=== PATIENT | male | born 1970 | race Two or more races ===

== ENCOUNTER → 2017-08-20 | Outpatient (CLI) | payer OTHER, MEDICAID ==
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
== END ==
LOC: M PAIN 13:00
PROVIDERS: ATTEND Anesthesiology
DX: G89.29 Other chronic pain (principal); M54.5 Low back pain; I10 Essential (primary) hypertension; G47.33 Obstructive sleep apnea (adult) (pediatric); Z88.5 Allergy status to narcotic agent; Z87.891 Personal history of nicotine dependence; Z79.899 Other long term (current) drug therapy

== ENCOUNTER → 2017-09-24 | Outpatient (CLI) | payer OTHER, MEDICAID | LOC: M PAIN 11:45 | DX: M54.16 Radiculopathy, lumbar region (principal); M46.1 Sacroiliitis, not elsewhere classified; I10 Essential (primary) hypertension; Z79.899 Other long term (current) drug therapy; Z88.5 Allergy status to narcotic agent; Z87.891 Personal history of nicotine dependence | CPT/HCPCS: G0463 ==

== ENCOUNTER → 2018-02-24 | Outpatient (CLI) | payer OTHER, MEDICAID | LOC: M PAIN 10:00 | DX: M54.16 Radiculopathy, lumbar region (principal); M46.1 Sacroiliitis, not elsewhere classified; I10 Essential (primary) hypertension; Z79.899 Other long term (current) drug therapy; Z88.5 Allergy status to narcotic agent; Z87.891 Personal history of nicotine dependence | CPT/HCPCS: G0463 ==

== ENCOUNTER → 2018-03-25 | Outpatient (CLI) | payer OTHER, MEDICAID | LOC: M PAIN 09:45 | DX: M54.16 Radiculopathy, lumbar region (principal); M46.1 Sacroiliitis, not elsewhere classified; I10 Essential (primary) hypertension; Z79.899 Other long term (current) drug therapy; Z88.5 Allergy status to narcotic agent; Z87.891 Personal history of nicotine dependence | CPT/HCPCS: G0463 ==

== ENCOUNTER → 2018-06-08 | Outpatient (CLI) | payer MEDICARE, OTHER, MEDICAID ==
[~2018-06-08] MED LIST: BUPIVACAINE HCL 0.25% 10 ML VIAL As Ordered; BUPIVACAINE HCL 0.25% 30 ML VIAL As Ordered; TRIAMCINOLONE ACETONIDE SUSP 40 MG/ML VIAL (J3301) As Ordered
== END ==
LOC: M PAIN 14:30
DX: M79.18 Myalgia, other site (principal); M79.10 Myalgia, unspecified site (principal); I10 Essential (primary) hypertension; M54.9 Dorsalgia, unspecified; Z87.891 Personal history of nicotine dependence; Z79.899 Other long term (current) drug therapy; Z88.5 Allergy status to narcotic agent
CPT/HCPCS: J3301

== ENCOUNTER → 2018-06-29 | Outpatient (CLI) | payer OTHER, MEDICAID | LOC: M PAIN 14:15 | DX: M79.18 Myalgia, other site (principal); M54.5 Low back pain; I10 Essential (primary) hypertension; Z79.899 Other long term (current) drug therapy; Z88.5 Allergy status to narcotic agent; Z87.891 Personal history of nicotine dependence | CPT/HCPCS: G0463 ==

== ENCOUNTER → 2018-12-23 | Outpatient (CLI) | payer OTHER, MEDICAID ==
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
== END ==
LOC: M PAIN 09:15
PROVIDERS: ATTEND Nurse Practitioner Family
DX: M54.16 Radiculopathy, lumbar region (principal); M46.96 Unspecified inflammatory spondylopathy, lumbar region; G89.29 Other chronic pain; I10 Essential (primary) hypertension; Z87.891 Personal history of nicotine dependence; Z88.5 Allergy status to narcotic agent; Z79.899 Other long term (current) drug therapy

== ENCOUNTER → 2019-05-22 | Outpatient (REF) | payer MEDICARE, MEDICAID, OTHER ==
[2019-05-22 14:02] LABS: BASO # 0.1 10^3/uL (0.0-0.2); EOS # 0.2 10^3/uL (0.0-0.5); EOS % 2.6 % (0.0-3.0); HEMATOCRIT 48.1 % (42.0-52.0); HEMOGLOBIN 15.7 g/dl (13.5-17.5); LYMPH # 1.3 10^3/uL (1.5-5.0); LYMPH % 20.8 % (24.0-44.0); MEAN CORPUSCULAR HGB CONC 32.6 g/dl (32.0-36.5); MEAN CORPUSCULAR VOLUME 88.9 fl (80.0-96.0); MONO # 0.6 10^3/uL (0.0-0.8); MONO % 10.2 % (0.0-5.0); NEUTROPHILS % 64.8 % (36.0-66.0); PLATELET COUNT, AUTOMATED 212 10^3/uL (150-450); RED BLOOD COUNT 5.41 10^6/uL (4.30-6.10); WHITE BLOOD COUNT 6.2 10^3/uL (4.0-10.0)
[2019-05-22 14:22] LABS: HEMOGLOBIN A1c 5.2 %
[2019-05-22 14:27] LABS: ERYTHROCYTE SEDIMENTATION RATE 3 mm/hr (0-15)
[2019-05-22 15:35] LABS: ALT/SGPT 96 U/L (12-78); BILIRUBIN,TOTAL 0.6 MG/DL (0.2-1.0); BLOOD UREA NITROGEN 18 MG/DL (7-18); CALCIUM LEVEL 9.2 MG/DL (8.5-10.1); CARBON DIOXIDE LEVEL 27 MEQ/L (21-32); CHLORIDE LEVEL 104 MEQ/L (98-107); CREATININE FOR GFR 0.99 MG/DL (0.70-1.30); GLOMERULAR FILTRATION RATE > 60.0 (>60); GLUCOSE, FASTING 85 MG/DL (70-100); POTASSIUM SERUM 4.6 MEQ/L (3.5-5.1); RHEUMATOID FACTOR QUANT < 10.0 IU/ML (<15.0); SODIUM LEVEL 138 MEQ/L (136-145); TOTAL PROTEIN 7.3 GM/DL (6.4-8.2)
[2019-05-22 15:36] LABS: FOLATE 11.1 NG/ML (>5.4); VITAMIN B12 LEVEL 499 PG/ML (247-911)
[2019-05-23 08:52] LABS: DRVV SCREEN 37.8 SEC
[2019-05-23 08:56] LABS: PTT LUPUS TYPE ANTICOAG SCREEN 0.9 (0-1.2)
[2019-05-23 11:05] LABS: ALBUMIN 4.38 GM/DL (3.29-5.55); ALPHA-1-GLOBULIN % 3.8 % (2.9-4.9); ALPHA-1-GLOBULINS 0.28 GM/DL (0.17-0.41); ALPHA-2-GLOBULINS 0.79 GM/DL (0.42-0.99); ALPHA-2-GLOBULINS % 10.8 % (7.1-11.8); BETA-1-GLOBULINS 0.45 GM/DL (0.28-0.60); BETA-1-GLOBULINS % 6.2 % (4.7-7.2); BETA-2-GLOBULINS 0.39 GM/DL (0.19-0.55); BETA-2-GLOBULINS % 5.3 % (3.2-6.5); GAMMA GLOBULIN % 13.9 % (11.1-18.8); GAMMA GLOBULINS 1.01 GM/DL (0.65-1.58)
[2019-05-28 00:10] LABS: ANCA-ATYPICAL <1:20 titer (Neg:<1:20); ANTI DS-DNA AB <1:10 titer (.); ANTINUCLEAR ANTIBODIES DIRECT Negative (Negative); CYTOPLASMIC NEUTROP AB ANCA-C <1:20 titer (Neg:<1:20); Lyme Disease IgG/IgM Antibodie <0.91 ISR (0.00-0.90); Lyme Disease IgM Ab Quantitati <0.80 index (0.00-0.79); PERINUCLEAR AB ANCA-P <1:20 titer (Neg:<1:20); SJOGREN'S ANTI SS-A <0.2 AI (0.0-0.9); SJOGREN'S ANTI SS-B <0.2 AI (0.0-0.9); VITAMIN B1 LEVEL WHOLE BLOOD 136.5 nmol/L (66.5-200.0); VITAMIN B6,PYRIDOXAL PHOSPHATE 22.1 ug/L (5.3-46.7); VITAMIN E(ALPHA TOCOPHEROL) 11.4 mg/L (7.0-25.1); VITAMIN E(GAMMA TOCOPHEROL) 1.5 mg/L (0.5-5.5)
== END ==
LOC: M LABDRAW1 09:00
PROVIDERS: ATTEND Psychiatry & Neurology Neurology
DX: G62.9 Polyneuropathy, unspecified (principal)

== ENCOUNTER 2021-07-03 11:33 | Emergency (ER) | payer MEDICAID, MEDICARE, OTHER ==
[~2021-07-03] VITALS: Ht 170.2 cm; Wt 101.8 kg
--- OUTSIDE RECORDS SUMMARY | 2021-07-03 11:42 | CCD ---
Author Author [facility] Organization [facility] Address Unknown Phone Unavailable Care Team Providers Care Hand Mold Maker Name Role Phone Farhad Wolfe MD Unavailable Unavailable Farhad Wolfe MD Unavailable Unavailable Farhad Wolfe MD Unavailable Unavailable Farhad Wolfe MD Unavailable Unavailable Farhad Wolfe MD Unavailable Unavailable Farhad Wolfe MD Unavailable Unavailable Farhad Wolfe MD Unavailable Unavailable Farhad Wolfe MD Unavailable Unavailable Farhad Wolfe MD Unavailable Unavailable Farhad Wolfe MD Unavailable Unavailable Farhad Wolfe MD Unavailable Unavailable Farhad Wolfe MD Unavailable Unavailable Farhad Wolfe MD Unavailable Unavailable Farhad Wolfe MD Unavailable Unavailable Farhad Wolfe MD Unavailable Unavailable Farhad Wolfe MD Unavailable Unavailable Farhad Wolfe MD Unavailable Unavailable Farhad Wolfe MD Unavailable Unavailable Farhad Wolfe MD Unavailable Unavailable Farhad Wolfe MD Unavailable Unavailable Farhad Wolfe MD Unavailable Unavailable Farhad Wolfe MD Unavailable Unavailable Farhad Wolfe MD Unavailable Unavailable Farhad Wolfe MD Unavailable Unavailable Farhad Wolfe MD Unavailable Unavailable Farahd Wolfe MD Unavailable Unavailable Farhad Wolfe MD Unavailable Unavailable Farhad Wolfe MD Unavailable Unavailable Farhad Wolfe MD Unavailable Unavailable Farhad Wolfe MD Unavailable Unavailable Farhad Wolfe MD Unavailable Unavailable Farhad Wolfe MD Unavailable Unavailable Farhad Wolfe MD Unavailable Unavailable Farhad Wolfe MD Unavailable Unavailable Farhad Wolfe MD Unavailable Unavailable Farhad Wolfe MD Unavailable Unavailable Farhad Wolfe MD Unavailable Unavailable Farhad Wolfe MD Unavailable Unavailable Farhad Wolfe MD Unavailable Unavailable Farhad Wolfe MD Unavailable Unavailable Farhad Wolfe MD Unavailable Unavailable Farhad Wolfe MD Unavailable Unavailable Farhad Wolfe MD Unavailable Unavailable Farhad Wolfe MD Unavailable Unavailable Farhad Wolfe MD Unavailable Unavailable Farhad Wolfe MD Unavailable Unavailable Farhad Wolfe MD Unavailable Unavailable Farhad Wolfe MD Unavailable Unavailable Farhad Wolfe MD Unavailable Unavailable Farhad Wolfe MD Unavailable Unavailable Farhad Wolfe MD Unavailable Unavailable Farhad Wolfe MD Unavailable Unavailable Farhad Wolfe MD Unavailable Unavailable Farhad Wolfe MD Unavailable Unavailable Farhad Wolfe MD Unavailable Unavailable Farhad Wolfe MD Unavailable Unavailable Farhad Wolfe MD Unavailable Unavailable Farhad Wolfe MD Unavailable Unavailable Farhad Wolfe MD Unavailable Unavailable Farhad Wolfe MD Unavailable Unavailable Farhad Wolfe MD Unavailable Unavailable Farhad Wolfe MD Unavailable Unavailable Farhad Wolfe MD Unavailable Unavailable Farhad Wolfe MD Unavailable Unavailable Farhad Wolfe MD Unavailable Unavailable Farhad Wolfe MD Unavailable Unavailable Farhad Wolfe MD Unavailable Unavailable Farhad Wolfe MD Unavailable Unavailable Farhad Wolfe MD Unavailable Unavailable Farhad Wolfe MD Unavailable Unavailable Farhad Wolfe MD Unavailable Unavailable Farhad Wolfe MD Unavailable Unavailable Farhad Wolfe MD Unavailable Unavailable Farhad Wolfe MD Unavailable Unavailable Farhad Wolfe MD Unavailable Unavailable Farhad Wolfe MD Unavailable Unavailable Farhad Wolfe MD Unavailable Unavailable Farhad Wolfe MD Unavailable Unavailable Farhad Wolfe MD Unavailable Unavailable Farhad Wolfe MD Unavailable Unavailable Farhad Wolfe MD Unavailable Unavailable Farhad Wolfe MD Unavailable Unavailable Farhad Wolfe MD Unavailable Unavailable Farhad Wolfe MD Unavailable Unavailable Farhad Wolfe MD Unavailable Unavailable Farhad Wolfe MD Unavailable Unavailable Farhad Wolfe MD Unavailable Unavailable Farhad Wolfe MD Unavailable Unavailable Farhad Wolfe MD Unavailable Unavailable Farhad Wolfe MD Unavailable Unavailable Farhad Wolfe MD Unavailable Unavailable Farhad Wolfe MD Unavailable Unavailable Farhad Wolfe MD Unavailable Unavailable EFFIE SALOMON MD Unavailable Unavailable EFFIE SALOMON MD Unavailable Unavailable EFFIE SALOMON MD Unavailable Unavailable EFFIE SALOMON MD Unavailable Unavailable EFFIE SALOMON MD Unavailable Unavailable EFFIE SALOMON MD Unavailable Unavailable EFFIE SALOMON MD Unavailable Unavailable EFFIE SALOMON MD Unavailable Unavailable EFFIE SALOMON MD Unavailable Unavailable EFFIE SALOMON MD Unavailable Unavailable SALOMON, EFFIE MD Unavailable Unavailable SALOMON, EFFIE MD Unavailable Unavailable ASLOMON, EFFIE MD Unavailable Unavailable SALOMON, EFFIE MD Unavailable Unavailable SALOMON, EFFIE MD Unavailable Unavailable SALOMON, EFFIE MD Unavailable Unavailable SALOMON, EFFIE MD Unavailable Unavailable SALOMON, EFFIE MD Unavailable Unavailable SALOMON, EFFIE MD Unavailable Unavailable SALOMON, EFFIE MD Unavailable Unavailable SALOMON, EFFIE MD Unavailable Unavailable SALOMON, EFFIE MD Unavailable Unavailable SALOMON, EFFIE MD Unavailable Unavailable SALOMON, EFFIE MD Unavailable Unavailable SALOMON, EFFIE MD Unavailable Unavailable SALOMON, EFFIE MD Unavailable Unavailable SALOMON, EFFIE MD Unavailable Unavailable SALOMON, EFFIE MD Unavailable Unavailable SALOMON, EFFIE MD Unavailable Unavailable SALOMON, EFFIE MD Unavailable Unavailable SALOMON, EFFIE MD Unavailable Unavailable SALOMON, EFFIE MD Unavailable Unavailable SALOMON, EFFIE MD Unavailable Unavailable SALOMON, EFFIE MD Unavailable Unavailable SALOMON, EFFIE MD Unavailable Unavailable SALOMON, EFFIE MD Unavailable Unavailable SALOMON, EFFIE MD Unavailable Unavailable SALOMON, EFFIE MD Unavailable Unavailable SALOMON, EFFIE MD Unavailable Unavailable SALOMON, EFFIE MD Unavailable Unavailable SALOMON, EFFIE MD Unavailable Unavailable SALOMON, EFFIE MD Unavailable Unavailable SALOMON, EFFIE MD Unavailable Unavailable SALOMON, EFFIE MD Unavailable Unavailable SALOMON, EFFIE MD Unavailable Unavailable SALOMON, EFFIE MD Unavailable Unavailable SALOMON, EFFIE MD Unavailable Unavailable SALOMON, EFFIE MD Unavailable Unavailable SALOMON, EFFIE MD Unavailable Unavailable SALOMON, EFFIE MD Unavailable Unavailable SALOMON, EFFIE MD Unavailable Unavailable SALOMON, EFFIE MD Unavailable Unavailable SALOMON, EFFIE MD Unavailable Unavailable SALOMON, EFFIE MD Unavailable Unavailable SALOMON, EFFIE MD Unavailable Unavailable SALOMON, EFFIE MD Unavailable Unavailable SALOMON, EFFIE MD Unavailable Unavailable SALOMON, EFFIE MD Unavailable Unavailable SALOMON, EFFIE MD Unavailable Unavailable SALOMON, EFFIE MD Unavailable Unavailable SALOMON, EFFIE MD Unavailable Unavailable SALOMON, EFFIE MD Unavailable Unavailable SALOMON, EFFIE MD Unavailable Unavailable SALOMON, EFFIE MD Unavailable Unavailable SALOMON, EFFIE MD Unavailable Unavailable SALOMON, EFFIE MD Unavailable Unavailable SALOMON, EFFIE MD Unavailable Unavailable SALOMON, FEFIE MD Unavailable Unavailable SALOMON, EFFIE MD Unavailable Unavailable SALOMON, EFFIE MD Unavailable Unavailable Rolando Patel MD Unavailable Unavailable Santos Garzon MD Unavailable Unavailable Ryann, F Jerry MD Unavailable Unavailable Ryann, F Jerry MD Unavailable Unavailable Ryann, F Jerry MD Unavailable Unavailable Ryann, F Jerry MD Unavailable Unavailable Ryann, F Jerry MD Unavailable Unavailable Ryann, F Jerry MD Unavailable Unavailable Ryann, F Jerry MD Unavailable Unavailable Ryann, F Jerry MD Unavailable Unavailable Ryann, F Jerry MD Unavailable Unavailable Ryann, F Jerry MD Unavailable Unavailable Ryann, F Jerry MD Unavailable Unavailable Ryann, F Jerry MD Unavailable Unavailable Ryann, F Jerry MD Unavailable Unavailable Ryann, F Jerry MD Unavailable Unavailable Ryann, F Jerry MD Unavailable Unavailable Ryann, F Jerry MD Unavailable Unavailable Ryann, F Jerry MD Unavailable Unavailable Ryann, F Jerry MD Unavailable Unavailable Ryann, F Jerry MD Unavailable Unavailable Ryann, F Jerry MD Unavailable Unavailable Ryann, F Jerry MD Unavailable Unavailable Ryann, F Jerry MD Unavailable Unavailable Ryann, F Jerry MD Unavailable Unavailable Ryann, F Jerry MD Unavailable Unavailable Ryann, F Jerry MD Unavailable Unavailable Ryann, F Jerry MD Unavailable Unavailable Ryann, F Jerry MD Unavailable Unavailable Ryann, F Jerry MD Unavailable Unavailable Ryann, F Jerry MD Unavailable Unavailable Ryann, F Jerry MD Unavailable Unavailable Ryann, F Jerry MD Unavailable Unavailable Ryann, F Jerry MD Unavailable Unavailable Ryann, F Jerry MD Unavailable Unavailable Ryann, F Jerry MD Unavailable Unavailable Ryann, F Jerry MD Unavailable Unavailable Ryann, F Jerry MD Unavailable Unavailable Ryann, F Jerry MD Unavailable Unavailable Ryann, F Jerry MD Unavailable Unavailable Ryann, F Jerry MD Unavailable Unavailable Ryann, F Jerry MD Unavailable Unavailable Ryann, F Jerry MD Unavailable Unavailable Re-disclosure Warning The records that you are about to access may contain information from federally-assisted alcohol or drug abuse programs. If such information is present, then the following federally mandated warning applies: This information has been disclosed to you from records protected by federal confidentiality rules (42 CFR part 2). The federal rules prohibit you from making any further disclosure of this information unless further disclosure is expressly permitted by the written consent of the person to whom it pertains or as otherwise permitted by 42 CFR part 2. A general authorization for the release of medical or other information is NOT sufficient for this purpose. The Federal rules restrict any use of the information to criminally investigate or prosecute any alcohol or drug abuse patient.The records that you are about to access may contain highly sensitive health information, the redisclosure of which is protected by Article 27-F of the [place] Public Health law. If you continue you may have access to information: Regarding HIV / AIDS; Provided by facilities licensed or operated by the [facility] Office of Mental Health; or Provided by the [facility] Office for People With Developmental Disabilities. If such information is present, then the following [facility] mandated warning applies: This information has been disclosed to you from confidential records which are protected by state law. State law prohibits you from making any further disclosure of this information without the specific written consent of the person to whom it pertains, or as otherwise permitted by law. Any unauthorized further disclosure in violation of state law may result in a fine or chcf sentence or both. A general authorization for the release of medical or other information is NOT sufficient authorization for further disc losure. Allergies and Adverse Reactions Type Description Substance Reaction Status Data Source(s ) Allergy to substance Allergy to substance Allergy to substance [facility] ([facility]) Allergy to substance Allergy to substance Allergy to substance [facility] ([facility]) Family History Family Member Name Family Member Gender Family Member Status Date o f Status Description Data Source(s) Unknown Condition [facility] Unknown Condition [facility] Unknown Condition [facility] Unknown Condition [facility] Unknown Condition [facility] Unknown Condition [facility] Encounters Encounter Providers Location Date Indications Data Source(s ) Outpatient Attender: EFFIE SALOMON MDConsultant: EFFIE Chavez MD 03/24/2021 01:44:00 PM EDT - 03/24/2021 01:44:00 PM EDT [facility] Emergency Attender: Rolando Patel MD 02/25/2021 10:42:00 AM EDT - 02/25/2021 05:43:00 PM EDT [facility] TO[facility] Patient discharged. Outpatient Attender: EFFIE SALOMON MD Family [facility] 01/20/2021 0 1:00:00 PM EDT [facility] ([facility]) Outpatient Attender: EFFIE SALOMON MDConsultant: EFFIE Chavez MD 01/20/2021 12:51:00 PM EDT - 01/20/2021 12:51:00 PM EDT [facility] Outpatient Attender: EFFIE SALOMON MDConsultant: EFFIE Chavez MD 01/06/2021 09:20:00 AM EDT - [facility] SAL[facility] MDConsultant: EFFIE Chavez MD 01/02/2021 10:33:00 AM EDT - 01/02/2021 10:33:00 AM EDT [facility] Bryce Wolfe MD: [address] [place] [address] [phone], Ph. Attender: Bryce Wolfe MD [facility] Medical 12/16/2020 12:00:00 AM EDT [facility] ([facility]) Bryce Wolfe MD: [address] [place] [address] [phone], Ph. Attender: Bryce Wolfe MD [facility] Medical 11/19/2020 12:00:00 AM EDT [facility] ([facility]) Bryce Wolfe MD: [address] [place] [address] [phone], Ph. Attender: Bryce Wolfe MD [facility] Medical 11/19/2020 12:00:00 AM EDT [facility] ([facility]) Outpatient Attender: EFFIE SALOMON MDConsultant: EFFIE Chavez MD 10/10/2020 01:41:00 PM EST - 10/10/2020 01:41:00 PM [facility] Outpatient Attender: Jerry Garzon MDAtt rivera: EFFIE SALOMON MDConsultant: EFFIE SALOMON MD 10/09/2020 03:15:00 PM EST - 10/09/2020 03:15:00 PM [facility] Outpatient Attender: EFFIE SALOMON MDConsultant: EFFIE Chavez MD 09/26/2020 08:36:00 AM EST - 09/26/2020 08:36:00 AM [facility] Outpatient Attender: EFFIE SALOMON MD Family Practice 09/26/2020 0 8:00:00 AM EST [facility] ([facility]) Outpatient Attender: EFFIE SALOMON MDConsultant: EFFIE Chavez MD 05/10/2020 09:16:00 AM EDT - 05/10/2020 09:16:00 AM EDT [facility] Outpatient Attender: EFFIE SALOMON MDConsultant: EFFIE Chavez MD 04/24/2020 12:52:00 PM EDT - 04/24/2020 12:52:00 PM EDT [facility] Immunizations Vaccine Date Status Description Data Source(s) COVID-19, mRNA, LNP-S, PF, 100 mcg/0.5 mL dose 12/16/2020 01 :41:36 PM EDT completed 10.5 mL [facility] ([facility]) COVID-19 VACCINE Moderna 12/16/2020 12:00:00 AM EDT completed [facility] Vaccine Series Complete: YESThis Data wa s Submitted to [facility] Via [employer]. COVID-19, mRNA, LNP-S, PF, 100 mcg/0.5 mL dose 11/19/2020 03 :05:11 PM EDT completed 10.5 mL [facility] ([facility]) COVID-19, mRNA, LNP-S, PF, 100 mcg/0.5 mL dose 11/19/2020 03 :05:11 PM EDT completed 10.5 mL [facility] ([facility]) COVID-19 VACCINE Moderna 11/19/2020 12:00:00 AM EDT completed [facility] Vaccine Series Complete: NOThis Data was Submitted to [facility] Via [employer]. Medications Medication Brand Name Start Date Product Form Dose Route Admi nistrative Instructions Pharmacy Instructions Status Indications Reaction Description Data Source(s) Cholecalciferol 23109 UNT Oral Capsule Weekly-D 10/10/2020 12:00:00 AM EST ORAL active [facility] ([facility]) Insurance Providers Payer name Policy type / Coverage type Policy ID Covered democrat ID Covered democrat's relationship to meehan Policy Meehan Plan Information UHC UNITED MEDICARE COMPLETE G [id number] Self [id number] ANNALEE MEDICARE [id number] SP [id number] ANNALEE [id number] SP [id number] [place] [id number] 18 [id number] UN[place] MEDIC[place] COM[place] [id number] 18 [id number] UNHC MEDICARE COMPLETE - O/P [id number] 18 [id number] UNHC MEDICARE COMPLETE - CLINIC [id number] 18 [id number] [facility] COMMERCIAL [id number] 18 [id number] UNHC MEDICARE COMPLETE - O/P [id number] 18 [id number] [place] [id number] 18 [id number] [place] [id number] 18 [id number] ANNALEE CARE [id number] 18 [id number] MEDICAID [id number] SP [id number] [place] [id number] 18 [id number] [place] [id number] ANSI-Medicaid [id number] ANSI-Commercial [id number] [place]ARE [place] [id number] 18 [id number] ANSI-Commercial [id number] ANSI-Medicaid [id number] ANSI-Commercial [id number] ANSI-Medicaid [id number] ANSI-Commercial [id number] [facility]-Medicaid [id number] ANSI-Commercial [id number] 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, lumbar region Spondylolysis, lumbar reg ion Diagnosis 01/06/2021 09:20:00 AM EDT [facility] R739 Hyperglycemia, unspecified Hyperglycemia, unspecified Diagnosis 01/02/2021 10:33:00 AM EDT [facility] S19617 Pain in left leg Pain in left leg Diagnosis 01/02/2021 10 :33:00 AM EDT [facility] M549 Dorsalgia, unspecified Dorsalgia, unspecified Diagnosi s 01/02/2021 10:33:00 AM EDT [facility] E7800 Pure hypercholesterolemia, unspecified P ure hypercholesterolemia, unspecified Diagnosis 01/02/2021 10:33:00 AM EDT [facility] E559 Vitamin D deficiency, unspecified Vitamin D defi ciency, unspecified Diagnosis 01/02/2021 10:33:00 AM EDT [facility] I10 Essential (primary) hypertension Essential (primary) h ypertension Diagnosis 01/02/2021 10:33:00 AM 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 [id number] Essential hypertension Essential hypertension Problem 10/09/2020 12:00:00 AM [facility] ([facility]) D17.1 Lipoma of skin Lipoma of skin Problem 10/09/2020 12:00: 00 AM [facility] ([facility]) Surgeries/Procedures Procedure Description Date Indications Data Source(s) Ultrasound scan of lower limb veins (procedure) 2020 11:35:00 AM [facility] Computed tomography of abdominal aorta with contrast (proced ure) 02/25/2021 11:08:00 [facility] (procedure) 02/25/2021 11:06:00 AM [facility] Plain chest X-ray (procedure) 02/25/2021 11:06:00 AM [facility] SARS-CoV-2 Rapid RNA (RT-PCR) 02/25/2021 12:00:00 AM [facility] OFFICE OUTPATIENT VISIT 15 MINUTES 01/20/2021 12:00:00 AM [facility] ([facility]) OFFICE OUTPATIENT VISIT 15 MINUTES 01/02/2021 12:00:00 AM [facility]) PHYSICIAN TELEPHONE EVALUATION 5-10 MIN 10/10/2020 12: 00:00 AM EST [facility] ([facility]) OFFICE OUTPATIENT NEW 20 MINUTES 10/09/2020 12:00:00 A M EST [facility] ([facility]) Brief Emotional/Behav Assessment W/ Scoring Doc Per Standard Inst 09/26/2020 12:00:00 AM EST [facility] ([facility]) PERIODIC PREVENTIVE MED EST PATIENT 40-64YRS 12:00:00 AM EST [facility] ([facility]) Results ID Date Data Source [id number] 02/25/2021 03:53:00 PM EDT [facility] [address] [place] [address] [phone] NAME SEX PT STATUS ACCOUNT NUMBER ADRIANA LENTZ [facility] [id number] ORDERING PHYSICIAN LOCATION MEDICAL RECORD NO. Rolando Patel MD ER [id number] ATTENDING PHYSICIAN DATE OF DATE OF EXAM/TIME Effie Salomon 1970 02[birth year]25/211107 TYPE / EXAM CTA Aortoiliofem runoff REASON FOR EXAM left toes blue CLINICAL HISTORY: [facility] left toes blue COMPARISON: None FINDINGS: The imaged thoracoabdominal aorta is of normal caliber, without dissection. There is a minimal amount of calcification of the distal abdominal aorta, just above the bifurcation. The bilateral common iliac arteries, external iliac arteries, and internal iliac arteries are patent. The bilateral superficial femoral and popliteal arteries are patent. On the right, the BHAVYA and peroneal arteries are well opacified into the foot; the posterior tibial artery is well opacified up to the ankle, but is not definitively followed past this point into the foot. On the left, the BHAVYA and peroneal arteries are well opacified into the foot; the posterior tibial artery is well opacified up to the ankle, but is not definitively followed past this point into the foot. Of note, the pedal arches and distal arteries of the foot are not well identified on this study. Redemonstrated radiopaque foreign object seen of the pad of the left foot (9:471). IMPRESSION: 1. At least 2 vessel runoff into the feet bilaterally, with the BHAVYA and peroneal arteries seen well opacified into the foot. The bilateral posterior tibial arteries cannot be definitively followed past the ankle into the foot. 2. Of note, the pedal arches and distal arteries of the foot are not well identified on this study. 3. Minimal atherosclerotic calcification of the remaining arterial structures. 4. Redemonstrated radiopaque foreign object seen of the pad of the left foot Dose reduction was performed utilizing CARE dose with automated adjustment of the kV and MAS according to patient size, iterative reconstruction, automated exposure control, as well as adaptivedose shielding. Reported By Jules Spain MD on 02/25/21 1553 Signed By Jules Spain MD on 02/25/21 1621 Date Time CC: Jules Spain MD; Effie Salomon MD Techn: SPANI Trans Dt/Tm: Trans by: DT Prt Dt/Tm: 5: Total DLP = 1331.00 mGy-cm : Total Radiation Dose = 19.9650 mSv Lifetime Dose: 19.9650 mSv Name Value Range Interpretation Code Description Data Marcelina rce(s) Supporting Document(s) ID Date Data Source [id number] 02/25/2021 02:52:00 PM EDT [facility] Name Value Range Interpretation Code Description Data Marcelina rce(s) Supporting Document(s) Creatine kinase [Enzymatic activity/volume] in Serum or Plasma 2 82 U/L 33-211 Above high normal [facility] Creatine kinase.MB [Enzymatic activity/volume] in Serum or P lasma 2.3 ng/mL 0.0-5.0 N [facility] Chemistry studies (set) 0.8 % [facility] ID Date Data Source [id number] 02/25/2021 02:52:00 PM EDT [facility] Name Value Range Interpretation Code Description Data Marcelina rce(s) Supporting Document(s) Troponin I.cardiac [Mass/volume] in Serum or Plasma Less Than 0.015 0.00-0.09 N [facility] Less than 0.09 NG/ML Negative0.10 - 0.77 NG/ML High Risk0.78 NG/ML or Greater PositiveThe WHO defined the cutoff (definition for diagnosis of NM)for this method as 0.78 ng/ml. ID Date Data Source [id number] 02/25/2021 12:38:00 PM EDT [facility] Special Instructions: Lab may order repe at test if initial test elevatedPhysician If elevated, reflex second test in 4-6 hrs Name Value Range Interpretation Code Description Data Marcelina rce(s) Supporting Document(s) Leukocytes [#/volume] in Blood by Automated count 7.9 10*3/uL 4.45-10 .71 [facility] Erythrocytes [#/volume] in Blood by Automated count 5.29 10*6/uL 4.3- 6.1 N [facility] Hemoglobin [Moles/volume] in Blood 15.7 g/dL 13-18 N [facility] Hematocrit [Volume Fraction] of Blood by Automated count 46.3 % 4 2-52 [facility] Erythrocyte mean corpuscular volume [Ent itic volume] in Cord blood by Automated count 88 fL 80-96 N [facility] ital Erythrocyte mean corpuscular hemoglobin [Entitic mass] by Au tomated count 30 pg 27-31 N [facility] Erythrocyte mean corpuscular hemoglobin concentration [Mass/volume] in Cord blood 34 g/dL 33-37 [facility] ital Erythrocyte distribution width [Entitic volume] by Automated count 13 % 11-15 N [facility] Platelets [#/volume] in Blood by Automated count 210 10*3/uL 130-472 N [facility] Platelet mean volume [Entitic volume] in Blood 11.1 fL 9.1-13.1 N [facility] Neutrophils/100 leukocytes in Blood by Automated count 65.2 % 41- 77 [facility] Neutrophils [#/volume] in Blood by Automated count 5.1 U 1.7-7.6 N [facility] Lymphocytes/100 leukocytes in Blood by Automated count 22.8 % 14- 46 N [facility] Lymphocytes [#/volume] in Blood by Automated count 1.8 U 0.6-4.6 N [facility] Monocytes/100 leukocytes in Blood by Automated count 8.8 % 4-12 N [facility] Monocytes [#/volume] in Blood by Automated count 0.7 U 0.2-1.2 N [facility] Eosinophils/100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 0.5, Lymph # (Auto) 1.8, Abs Immat Gran (auto) 0.0, Add Manual Diff No, Absolute Neutrophils 5.1, Monocytes # 0.7, Absolute Eosinophils 0.2, Absolute Basophils 0.0, ESR 5 02/25/21 12:21: PT 11.0, INR 1.0, PTT (Sandy) 27.1 02/25/21 12:21: Sodium 136, Potassium 4.0, Chloride 102, Carbon Dioxide 28, Anion Gap 10, BUN 16, Creatinine 0.9, GFR Calculation Greater than 60, Glucose 89, Calcium 8.8, Total Bilirubin 0.6, AST 24, ALT 34, Alkaline Phosphatase 63, C-Reactive Protein Less than 2.9, Serum Total Protein 7.9, Albumin 4.0 02/25/21 12:21: Lactic Acid 1.4 02/25/21 12:21: Creatine Kinase 282 H, CK-MB (CK-2) 2.3, CK-MB (CK-2) % 0.8, Troponin I Less than 0.015 Microbiology 02/25/21 11:21 Nasopharyngeal SARS-CoV-2 Rapid RNA (RT-PCR) - Final Sars-Cov-2 Not Detected Influenza A Not Detected Influenza B Not Detected RSV Not Detected Medical Decision Making Free Text/Narative:: 5:00pm CTA report reviewed. case d w director of public relations hospitalist dr. Montgomery. advise transfer to a facility with vascular surgery capability. 5:06pm contacted [facility] for transfer due to LLE ischemia. 5:20pm pt refused transfer to another facility with vascular surgery evaluation/ management capability. pt decided to leave AMA. pt signed AMA form. pt's VSS, observed to have a steady gait inER. Discharge Plan Admission/Discharge Dx Primary DC Diagnosis: left lower extremity ischemia ED Provider: Rolando Salas ED Status: Discharged Time Seen by Provider: 02/25/21 10:53 Triaged At: 02/25/21 10:42 Condition Condition: Stable Discharge Detail Disposition: Against Medical Advice Med Rec New Prescriptions: No Action meloxicam 15 MG tablet 15 mg PO DAILY Qty: 14 RF: 0 tizanidine 4 MG capsule 4 mg PO [id number] Qty: 15 RF: 0 gabapentin 400 MG capsule 400 mg PO TID Qty: 1 RF: 0 Discharge Education Printouts: Against Medical Advice (ED) Follow Up Visit/Referrals: uJan Felipe [PHYSICIAN] - (igor graham follow up in 1 day) Effie Salomon [Primary Care Provider] - (please follow up in 1 day) *Discharge Patient* Discharge Date/Time: 02/25/21 17:43 Interventions Interventions: ED Discharge Instructions Last Done: 02/25/21 17:51 Report Signers: <Electronically signed by Rolando Patel MD> Rolando Patel MD 02/25/21 1800 Rolando Patel MD SIGNATURE DA Report Cosigners: D: PAAPI 02/25/21 1113 T: PAAPI 02/25/21 1113 CC: Effie Salomon MD Name Value Range Interpretation Code Description Data Marcelina rce(s) Supporting Document(s) ID Date Data Source [id number] 01/07/2021 10:31:00 [place] [address] PHONE: [phone] FAX: [phone] Name .................. : MARY CARMEN ADRIANA Chavez Acct Number.................. : [id number] ROOM. ................. : Number ................... : [id number] Stay type ............. : O/P Discharge Date......... ... : 01/06/21 Admit Date .... ..... : 01/06/21 Admit Phys .................... : SALOMON HARD Date of ....... : 1970 Family Phys ................... : SALOMON HARD Phone .................. : [phone] Age ................................ : 50 Film# .................. .:[id number] Sex ................................. : M Unsigned transcriptions are preliminary reports and do not represent a medical or legal document SPINE COMPLETE [id number] COMPLETE:01/06/21 09:26 [id number] Reason for Exam: DORSALGIA LUMBAR SPINE, 01/06/21: INDICATION: Back pain. Comparison is made to a prior study from 05/16/2019. FINDINGS: Spondylolysis is identified bilaterally at L5 with grade I anterolisthesis of L5/S1, unchanged since prior study. Minimal retrolisthesis of L4/L5 is identified, unchanged since prior study. Diffuse facet joint hypertrophy is present. Disc space narrowing is present at L 4-5 and L5-S1. IMPRESSION: Degenerative changes. 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 Grade I anterolisthesis of L5/S1, unchanged. Examination dictated by PALAK Weber. Examination was reviewed with Thomas Ray MD, radiologist at the time of this dictation. Electronically Reviewed and Signed By Thomas Ray MD , 01/07/21 10:31, AML Transcribe Initials: SSR, Transcribe Date: 01/06/21 13:22, Dictation Date: Copy for: [address] [place] [address] REC Page 1 of 1 Name Value Range Interpretation Code Description Data Marcelina rce(s) Supporting Document(s) ID Date Data Source [id number] 01/07/2021 10:31:00 AM EDT [facility] [address] [place] [address] PHONE: [phone] FAX: [phone] Name .................. : MARY CARMEN ADRIANA Chavez Acct Number.................. : [id number] ROOM. ................. : Number ................... : [id number] Stay type ............. : O/P Discharge Date......... ... : 01/06/21 Admit Date .... ..... : 01/06/21 Admit Phys .................... : SALOMON HARD Date of ....... : 1970 Family Phys ................... : Squirro HARD Phone .................. : [phone] Age ................................ : 50 Film# .................. .:[id number] Sex ................................. : M Unsigned transcriptions are preliminary reports and do not represent a medical or legal [place] [id number] COMPLETE:01/06/21 09:26 [id number] Tiffany son for Exam: PAIN L LEG LEFT HIP, 01/06/21: INDICATION: Pain in the left leg. FINDINGS: Mild joint space narrowing is identified at the left hip with minimally sclerotic margins. No clear evidence of an acute fracture or dislocation is identified. Soft tissues appear unremarkable. IMPRESSION: Mild degenerative changes. No acute findings. Examination dictated by PALAK Weber. Examination was reviewed with Thomas Ray MD, radiologist at the time of this dictation. Electronically Reviewed and Signed By Thomas Ray MD , 01/07/21 10:31, AML Transcribe Initials: [facility], Transcribe Date: 01/06/21 13:25, Dictation Date: Copy for: [facility] REC Page 1 of 1 Name Value Range Interpretation Code Description Data Marcelina rce(s) Supporting Document(s) ID Date Data Source [id number] 01/07/2021 10:31:00 AM EDT [facility] [address] [place] [address] PHONE: [phone] FAX: [phone] Name .................. : MARY CARMEN Chavez Acct Number.................. : [id number] ROOM. ................. : MR Number ................... : [id number] Stay type ............. : O/P Discharge Date......... ... : 01/06/21 Admit Date .... ..... : 01/06/21 Admit Phys .................... : Squirro HARD Date of ....... : 1970 Family Phys ................... : [employer] Phone .................. : [phone] Age ................................ : 50 Film# .................. .:[id number] Sex ................................. : M Unsigned transcriptions are preliminary reports and do not represent a medical or legal document FEM[place] [address] [place] [id number] COMPLETE:01/06/21 09:26 [id number] Tiffany son for Exam: PAIN L LEG LEFT FEMUR, 01/06/21: INDICATION: Pain. FINDINGS: Examination is limited as only AP views are submitted. No gross evidence of an acute fracture or dislocation is identified. A lateral view should be considered for further evaluation. Degenerative changes are present at the hip and knee. Soft tissues appear unremarkable. IMPRESSION: Limited study. Lateral views are recommended. No gross acute findings. DJD. Examination dictated by PALAK Weber. Examination was reviewed with Thomas Ray MD, radiologist at the time of this dictation. Electronically Reviewed and Signed By Thomas Ray MD , 01/07/21 10:31, AML Transcribe Initials: [facility], Transcribe Date: 01/06/21 13:26, Dictation Date: Copy for: [facility] REC Page 1 of 1 Name Value Range Interpretation Code Description Data Marcelina rce(s) Supporting Document(s) ID Date Data Source [id number] 09/26/2020 09:04:00 AM EST [facility] ([facility]) Name Value Range Interpretation Code Description Data Marcelina rce(s) Supporting Document(s) Thyrotropin [Units/volume] in Serum or Plasma 1.37 uIU/mL 0.47-5.01 [facility] ([facility]) Is patient fasting? Y Thyroxine (T4) [Mass/volume] in Serum or Plasma 7.1 ug/dL 4.5-12.5 [facility] ([facility]) Is patient fasting? Y Cobalamin (Vitamin B12) [Mass/volume] in Serum or Plasma 401 pg/mL 2 32-1245 [facility] ([facility]) Is patient fasting? Y Calcidiol [Mass/volume] in Serum or Plasma 16 ng/mL [facility] ([facility]) Is patient fasting? Y ID Date Data Source [id number] 09/26/2020 09:04:00 AM EST [facility] ([facility]) Name Value Range Interpretation Code Description Data Marcelina rce(s) Supporting Document(s) Cholesterol 183 mg/dL 131-200 [facility] ([facility]) Is patient fasting? Y Cve Panel Laboratory test result [facility] ([facility]) Is patient fasting? Y Triglycerides 251 mg/dL 35-160 Above high normal [facility] NT ([facility]) Is patient fasting? Y LDL 121 mg/dL 65-175 [facility] ([facility]) Is patient fasting? Y HDL 40 mg/dL 29-86 [facility] ([facility]) Is patient fasting? Y LDL/HDL 3.03 1.00-3.55 [facility] ([facility]) Is patient fasting? Y Risk Factor 4.6 3.4-4.9 [facility] ([facility]) Is patient fasting? Y ID Date Data Source [id number] 09/26/2020 09:04:00 AM EST [facility] ([facility]) Name Value Range Interpretation Code Description Data Marcelina rce(s) Supporting Document(s) Hemoglobin A1c/Hemoglobin.total in Blood 5.4 % 4.4-6.1 [facility] ([facility]) Is patient fasting? Y ID Date Data Source [id number] 09/26/2020 09:04:00 AM EST [facility] ([facility]) Name Value Range Interpretation Code Description Data Marcelina rce(s) Supporting Document(s) CBC W/Automated Diff Laboratory test result [facility] ([facility]) Is patient fasting? Y WBC 5.9 10^3/uL 4.2-11.0 [facility] ([facility]) Is patient fasting? Y RBC 5.38 10^6/uL 4.50-6.30 [facility] ([facility]) Is patient fasting? Y Hemoglobin 15.6 g/dL 14.0-16.0 [facility] ([facility]) Is patient fasting? Y Hematocrit 46.8 % 41.0-51.0 [facility] ([facility]) Is patient fasting? Y MCV 87.0 fL 80.0-94.0 [facility] ([facility]) Is patient fasting? Y MCH 29.0 pg 27.0-34.0 [facility] ([facility]) Is patient fasting? Y MCHC 33.3 g/dL 31.0-36.0 [facility] ([facility]) Is patient fasting? Y Platelets 241 10^3/uL 150-450 [facility] ([facility]) Is patient fasting? Y RDW 12.4 % 11.5-14.8 [facility] ([facility]) Is patient fasting? Y MPV 12.3 fL 7.4-10.4 Above high normal [facility] ([facility]) Is patient fasting? Y Lymph 22.7 % 25.0-40.0 Below low normal [facility] ( [facility]) Is patient fasting? Y Neut 64.6 % 37.0-80.0 [facility] ([facility]) Is patient fasting? Y Frontier 10.0 % 3.0-8.0 Above high normal [facility] ([facility]) Is patient fasting? Y Eos 1.9 % 0.0-7.0 [facility] ([facility]) Is patient fasting? Y Baso 0.5 % 0.0-2.0 [facility] ([facility]) Is patient fasting? Y %NRBC 0.0 % 0.0-0.0 [facility] ([facility]) Is patient fasting? Y %Ig 0.3 % 0.0-0.0 Above high normal [facility] ([facility]) Is patient fasting? Y #Lymph 1.34 10^3/uL 0.60-3.40 [facility] ([facility]) Is patient fasting? Y #Frontier 0.59 10^3/uL 0.00-0.90 [facility] ([facility]) Is patient fasting? Y #Neut 3.81 10^3/uL 2.00-6.90 [facility] ([facility]) Is patient fasting? Y #Eos 0.11 10^3/uL 0.00-0.70 [facility] ([facility]) Is patient fasting? Y #Ig 0.02 10^3/uL 0.00-0.10 [facility] ([facility]) Is patient fasting? Y #Baso 0.03 10^3/uL 0.00-0.20 [facility] ([facility]) Is patient fasting? Y #NRBC 0.00 10^3/uL 0.00-0.00 [facility] ([facility]) Is patient fasting? Y Manual Diff Laboratory test result M [facility] ([facility]) Is patient fasting? Y RBC Morph Laboratory test result [facility] ([facility]) Is patient fasting? Y ID Date Data Source [id number] 09/26/2020 09:04:00 AM EST [facility] ([facility]) Name Value Range Interpretation Code Description Data Marcelina rce(s) Supporting Document(s) Comprehensive Metabo Laboratory test result [facility] ([facility]) Is patient fasting? Y Sodium 135 meq/L 134-153 [facility] ([facility]) Is patient fasting? Y Chloride 99 meq/L 98-107 [facility] ([facility]) Is patient fasting? Y Potassium 4.3 meq/L 3.6-5.0 [facility] ([facility]) Is patient fasting? Y Co2 23 meq/L 22-30 [facility] ([facility]) Is patient fasting? Y Glucose 112 mg/dL 70-99 Above high normal [facility] ([facility]) Is patient fasting? Y BUN 16 mg/dL 7-21 [facility] ([facility]) Is patient fasting? Y BUN/Creat 20 8-27 [facility] ([facility]) Is patient fasting? Y Creatinine 0.8 mg/dL 0.7-1.5 [facility] ([facility]) Is patient fasting? Y Albumin 4.6 g/dL 3.9-5.0 [facility] ([facility]) Is patient fasting? Y Total Protein 7.0 g/dL 6.3-8.2 [facility] ([facility]) Is patient fasting? Y Globulin 2.4 GM/DL 2.4-3.2 [facility] ([facility]) Is patient fasting? Y Calcium 9.5 mg/dL 8.4-10.2 [facility] ([facility]) Is patient fasting? Y A/G Ratio 1.9 0.8-2.0 [facility] ([facility]) Is patient fasting? Y Total Bili Laboratory test result 0.2-1.3 ME [facility] ([facility]) Is patient fasting? Y Alkaline Phos 71 U/L 38-126 [facility] ([facility]) Is patient fasting? Y Sgot/Ast 17 U/L 5-40 [facility] ([facility]) Is patient fasting? Y SGPT/Alt 14 U/L 7-56 [facility] ([facility]) Is patient fasting? Y Anion Gap 13.0 mmol/L 8.0-16.0 [facility] ([facility]) Is patient fasting? Y Age 49 yrs [facility] ([facility]) Is patient fasting? Y Afr Amer GFR Laboratory test result [facility] ([facility]) Is patient fasting? Y Non-Aa GFR Laboratory test result [facility] ([facility]) Is patient fasting? Y ID Date Data Source [id number] 09/27/2020 08:59:00 AM [facility] Name Value Range Interpretation Code Description Data Marcelina rce(s) Supporting Document(s) Calcidiol [Moles/volume] in Serum or Plasma 16 NG/ML [facility] VITAMIN-D(2 5HYDROXY) Deficiency: <=20 ng/ml Insufficiency: 21-29 ng/ml Preferred level: => 30 ng/ml ID Date Data Source [id number] 09/26/2020 05:02:00 PM [facility] Name Value Range Interpretation Code Description Data Marcelina rce(s) Supporting Document(s) COMPREHENSIVE METABOLIC PANEL [facility] COMPREHENSIVE METABOLIC PANEL Sodium [Moles/volume] in Serum or Plasma 135 mEq/L 134 - 153 [facility] Potassium [Moles/volume] in Serum or Plasma 4.3 mEq/L 3.6 - 5.0 [facility] Chloride [Moles/volume] in Serum or Plasma 99 mEq/L 98 - 107 [facility] Carbon dioxide, total [Moles/volume] in Serum or Plasma 23 MEQ/L 22 - 30 [facility] Glucose [Mass/volume] in Serum or Plasma 112 MG/DL 70 - 99 H [facility] BUN 16 MG[facility]DL 7 - 21 [facility] Creat[facility] [Mass/volume] in Serum or Plasma 0.8 MG/DL 0.7 - 1.5 [facility] BUN/CREAT 20 8 - 27 [facility] al Protein [Mass/volume] in Serum or Plasma 7.0 G/DL 6.3 - 8.2 [facility] Albumin [Mass/volume] in Serum or Plasma 4.6 G/DL 3.9 - 5.0 [facility] Globulin [Mass/volume] in Serum by calculation 2.4 GM/DL 2.4 - 3.2 [facility] A/G RATIO 1.9 0.8 - 2.0 [facility] Calcium [Mass/volume] in Serum or Plasma 9.5 MG/DL 8.4 - 10.2 [facility] Bilirubin.total [Mass/volume] in Serum or Plasma <0.7 MG/DL 0.2 - 1.3 [facility] Alkaline phosphatase [Enzymatic activity/volume] in Serum or Plasma 71 U/L 38 - 126 [facility] Aspartate aminotransferase [Enzymatic activity/volume] in Serum or Plasma 17 U/L 5 - 40 [facility] Alanine aminotransferase [Enzymatic activity/volume] in Seru m or Plasma 14 U/L 7 - 56 [facility] Anion gap 3 in Serum or Plasma 13.0 mmol/L 8.0 - 16.0 [facility] AGE 49 yrs [facility] NON-AA GFR >60 mL/min [facility] ital AFR AMER GFR >60 mL/min [facility] Male GFR In terprentation 20-49 yrs >60 mL/min Normal 50-59 yrs >56 mL/min Normal 60-69 yrs >49 mL/min Normal 70-79yrs >42 mL/min Normal 80 and above >35 mL/min Normal Female GFR Interpretation 20-39 yrs >60 mL/min Normal 40-49 yrs >58 mL/min Normal 50-59 yrs >51 mL/min Normal 60-69 yrs >45 mL/min Normal 70-79 yrs >39 mL/min Normal 80 and above >32 mL/min Normal ID Date Data Source [id number] 09/26/2020 04:47:00 PM EST [facility] Name Value Range Interpretation Code Description Data Marcelina rce(s) Supporting Document(s) Cobalamin (Vitamin B12) [Mass/volume] in Serum or Plasma 401 PG/ML 232 - 1245 [facility] ID Date Data Source [id number] 09/26/2020 04:47:00 PM [facility] Name Value Range Interpretation Code Description Data Marcelina rce(s) Supporting Document(s) Thyroxine (T4) [Mass/volume] in Serum or Plasma 7.1 UG/DL 4.5 - 12.5 [facility] ID Date Data Source [id number] 09/26/2020 04:47:00 PM EST [facility] Name Value Range Interpretation Code Description Data Marcelina rce(s) Supporting Document(s) Thyrotropin [Units/volume] in Serum or Plasma by Detec tion limit <= 0.05 mIU/L 1.37 uIU/mL 0.47 - 5.01 [facility] ID Date Data Source [id number] 09/26/2020 04:30:00 PM EST [facility] Name Value Range Interpretation Code Description Data Marcelina rce(s) Supporting Document(s) CVE PANEL [facility] al LIPID PANEL Cholesterol [Mass/volume] in Serum or Plasma 183 MG/DL 131 - 200 [facility] Deprecated Triglyceride [Mass/volume] in Serum or Plasma 251 MG/DL 3 5 - 160 H [facility] HDL 40 MG/DL 29 - 86 [facility] al Cholesterol in LDL [Mass/volume] in Serum or Plasma by Direc t assay 121 mg/dL 65 - 175 [facility] Cholesterol.total/Cholesterol in HDL [Mass Ratio] in Serum o r Plasma 4.6 3.4 - 4.9 [facility] LDL/HDL 3.03 1.00 - 3.55 [facility] ital CVE RISK CHOL/HDL LDL/HDLMEN: 1/2 AVERAGE 3.43 1.00 AVERAGE 4.97 3.55 2X AVERAGE 9.55 6.25 3X AVERAGE 23.99 7.99WOMEN: 1/2 AVERAGE 3.27 1.47 AVERAGE 4.44 3.22 2X AVERAGE 7.05 5.03 3X AVERAGE 11.04 6.14 ID Date Data Source [id number] 09/26/2020 04:14:00 PM EST [facility] Name Value Range Interpretation Code Description Data Marcelina rce(s) Supporting Document(s) Hemoglobin A1c/Hemoglobin.total in Blood 5.4 % 4.4 - 6.1 [facility] {A1]{HB] ID Date Data Source [id number] 09/26/2020 04:13:00 PM EST [facility] Name Value Range Interpretation Code Description Data Marcelina rce(s) Supporting Document(s) CBC W/AUTOMATED DIFF [facility] COMPLETE BLOOD COUNT Leukocytes [#/volume] in Blood by Automated count 5.9 10^3/uL 4.2 - 1 1.0 [facility] Erythrocytes [#/volume] in Blood by Automated count 5.38 10^6/uL 4. 50 - 6.30 [facility] Hemoglobin [Mass/volume] in Blood 15.6 g/dL 14.0 - 16.0 [facility] Hematocrit [Volume Fraction] of Blood by Automated count 46.8 % 4 1.0 - 51.0 [facility] Erythrocyte mean corpuscular volume [Entitic volume] by Auto mated count 87.0 fL 80.0 - 94.0 [facility] Erythrocyte mean corpuscular hemoglobin [Entitic mass] by Automated count 29.0 pg 27.0 - 34.0 [facility] Erythrocyte mean corpuscular hemoglobin concentration [Mass/volume] by Automated count 33.3 g/dL 31.0 - 36.0 [facility] Erythrocyte distribution width [Ratio] by Automated count 12.4 % 11.5 - 14.8 [facility] Platelets [#/volume] in Blood by Automated count 241 10^3/uL 150 - 45 0 [facility] Platelet mean volume [Entitic volume] in Blood by Automated count 12.3 fL 7.4 - 10.4 H [facility] Neutrophils/100 leukocytes in Blood by Automated count 64.6 % 37. 0 - 80.0 [facility] Lymphocytes/100 leukocytes in Blood by Manual count 22.7 % 25.0 - 40.0 L [facility] Monocytes/100 leukocytes in Blood by Automated count 10.0 % 3.0 - 8.0 H [facility] Eosinophils/100 leukocytes in Blood by Automated count 1.9 % 0.0 - 7.0 [facility] Basophils/100 leukocytes in Blood by Automated count 0.5 % 0.0 - 2.0 [facility] %IG 0.3 % 0.0 - 0.0 H [facility] %NRBC 0.0 % 0.0 - 0.0 [facility] al Neutrophils [#/volume] in Blood by Automated count 3.81 10^3/uL 2.00 - 6.90 [facility] Lymphocytes [#/volume] in Blood by Automated count 1.34 10^3/uL 0.60 - 3.40 [facility] Monocytes [#/volume] in Blood by Automated count 0.59 10^3/uL 0.00 - 0.90 [facility] Eosinophils [#/volume] in Blood by Automated count 0.11 10^3/uL 0.00 - 0.70 [facility] Basophils [#/volume] in Blood by Automated count 0.03 10^3/uL 0.00 - 0.20 [facility] #IG 0.02 10^3/uL 0.00 - 0.10 [facility] #NRBC 0.00 10^3/uL 0.00 - 0.00 [facility] MANUAL DIFF NOT INDICATED [facility] RBC MORPH NOT INDICATED [facility] ID Date Data Source [id number] 05/10/2020 09:15:00 AM EDT [facility] Name Value Range Interpretation Code Description Data Marcelina rce(s) Supporting Document(s) Treponema pallidum Ab [Presence] in Serum Laboratory test result [facility] ([facility]) ID Date Data Source [id number] 05/10/2020 09:15:00 AM EDT [facility] ([facility]) Name Value Range Interpretation Code Description Data Marcelina rce(s) Supporting Document(s) Laboratory test finding (navigational concept) Laboratory test result [facility] ([facility]) ID Date Data Source [id number] 05/10/2020 09:15:00 AM EDT [facility] ([facility]) Name Value Range Interpretation Code Description Data Marcelina rce(s) Supporting Document(s) Reagin Ab [Presence] in Serum by RPR Laboratory test result [facility] ([facility]) ID Date Data Source [id number] 05/10/2020 02:42:00 PM EDT [facility] Name Value Range Interpretation Code Description Data Marcelina rce(s) Supporting Document(s) Treponema pallidum Ab [Presence] in Serum NON-REACTIVE NORMAL:NON TIFFANY CTIVE [facility] Procedure Social History Code Duration Value Status Description Data Source(s ) 02/25/2021 12:00:12 PM EDT No completed No [facility] 02/25/2021 12:00:12 PM EDT No completed No [facility] 02/25/2021 12:00:12 PM EDT Former smoker completed Former smoker [facility] Smoking 02/25/2021 12:00:00 PM EDT Former smoker completed Former smoker [facility] Vital Signs ID Date Data Source UNK Name Value Range Interpretation Code Description Data Source(s) Systolic blood pressure 118 mm[Hg] 118 mm[Hg] [facility] ([facility]) Diastolic blood pressure 60 mm[Hg] 60 mm[Hg] [facility]) Heart rate 90 /min 90 /min [facility] ([facility]) Body temperature 97.7 [degF] 97.7 [degF] [facility] ([facility]) Respiratory rate 18 /min 18 /min [facility] ( [facility]) Oxygen saturation in Arterial blood by Pulse oximetry 98 % 98 % [facility] ([facility]) Body weight 208.00 [lb_av] 208.00 [lb_av] [facility] ([facility]) Body weight 94.349 kg 94.349 kg [facility] ([facility]) Body height 67 [in_i] 67 [in_i] [facility] ([facility]) 5'7" Body mass index (BMI) [Ratio] 32.6 kg/m2 32.6 k g/m2 [facility] ([facility]) Body surface area Derived from formula 2.06 m2 2.06 m2 [facility] ([facility]) Oxygen saturation in Arterial blood by Pulse oximetry 97 % 97 % [facility] ([facility]) Systolic blood pressure 122 mm[Hg] 122 mm[Hg] [facility] ([facility]) Diastolic blood pressure 74 mm[Hg] 74 mm[Hg] [facility] ([facility]) Body height 67 [in_i] 67 [in_i] [facility] ([facility]) 5'7" Heart rate 78 /min 78 /min [facility] ([facility]) Body temperature 97.8 [degF] 97.8 [degF] [facility] ([facility]) Respiratory rate 16 /min 16 /min [facility] ( [facility]) Body weight 206.00 [lb_av] 206.00 [lb_av] [facility] ([facility]) Body weight 93.442 kg 93.442 kg [facility] ([facility]) Body mass index (BMI) [Ratio] 32.3 kg/m2 32.3 k g/m2 [facility] ([facility]) Body surface area Derived from formula 2.05 m2 2.05 m2 [facility] ([facility]) Body weight 201.00 [lb_av] 201.00 [lb_av] [facility] ([facility]) Systolic blood pressure 122 mm[Hg] 122 mm[Hg] [facility] ([facility]) Diastolic blood pressure 82 mm[Hg] 82 mm[Hg] [facility] ([facility]) Heart rate 77 /min 77 /min [facility] ([facility]) Body temperature 96.6 [degF] 96.6 [degF] [facility] ([facility]) Respiratory rate 18 /min 18 /min [facility] ( [facility]) Oxygen saturation in Arterial blood by Pulse oximetry 92 % 92 % [facility] ([facility]) Body weight 91.174 kg 91.174 kg [facility] ([facility]) Body height 67 [in_i] 67 [in_i] [facility] ([facility]) 5'7" Body mass index (BMI) [Ratio] 31.5 kg/m2 31.5 k g/m2 [facility] ([facility]) Body surface area Derived from formula 2.03 m2 2.03 m2 [facility] ([facility]) Body height 67 [in_i] 67 [in_i] [facility] ([facility]) 5'7" Systolic blood pressure 140 mm[Hg] 140 mm[Hg] [facility] ([facility]) Diastolic blood pressure 94 mm[Hg] 94 mm[Hg] [facility] ([facility]) Heart rate 72 /min 72 /min [facility] ([facility]) Body temperature 98.6 [degF] 98.6 [degF] [facility] ([facility]) Respiratory rate 16 /min 16 /min [facility] ( [facility]) Oxygen saturation in Arterial blood by Pulse oximetry 99 % 99 % [facility] ([facility]) Body weight 19.00 [lb_av] 19.00 [lb_av] [facility] ([facility]) Body weight 8.618 kg 8.618 [facility] Body mass index (BMI) [Ratio] 3.0 kg/m2 3.0 kg /m2 [facility] ([facility]) Body surface area Derived from formula 0.74 m2 0.74 m2 [facility] ([facility]) Systolic blood pressure 132 mm[Hg] 132 mm[Hg] [facility] ([facility]) Diastolic blood pressure 80 mm[Hg] 80 mm[Hg] [facility] ([facility]) Body temperature 97.6 [degF] 97.6 [degF] [facility] ([facility]) Heart rate 88 /min 88 /min [facility] ([facility]) Respiratory rate 18 /min 18 /min [facility] ( [facility]) Oxygen saturation in Arterial blood by Pulse oximetry 92 % 92 % [facility] ([facility]) Body weight 195.00 [lb_av] 195.00 [lb_av] [facility] ([facility]) Body weight 88.452 kg 88.452 kg [facility] ([facility]) Body height 67 [in_i] 67 [in_i] [facility] ([facility]) 5'7" Body mass index (BMI) [Ratio] 30.5 kg/m2 30.5 k g/m2 [facility] ([facility]) Body surface area Derived from formula 2.00 m2 2.00 m2 [facility] ([facility])
[2021-07-03] MEDS ORDERED: MELO15TA28 (11:44)
[2021-07-03] MEDS ORDERED: LISI20TA35 (11:44)
--- OUTSIDE RECORDS SUMMARY | 2021-07-03 13:57 | CCD ---
Author Author [facility] Organization [facility] Address Unknown Phone Unavailable Care Team Providers Care [employer] Science Healer Name Role Phone Farhad Wolfe MD Unavailable [...] Unavailable Farhad Wolfe MD Unavailable Unavailable Farhad Wlofe MD Unavailable Unavailable Farhad Wolfe MD Unavailable [...] Unavailable Farhad Wolfe MD Unavailable Unavailable Farhad Wofle MD Unavailable Unavailable Farhad Wolfe MD Unavailable [...] Unavailable EFFIE SALOMON MD Unavailable Unavailable EFFIE SALMOON MD Unavailable Unavailable SALOMON, EFFIE MD Unavailable [...] SALOMON, EFFIE MD Unavailable Unavailable SALOMON, EFFIE Unavailable Unavailable Rolando Patel MD Unavailable Unavailable Ryann, F Jerry WOLFE Unavailable Unavailable Ryann, F Jerry WOLFE Unavailable Unavailable Ryann, F Jerry WOLFE Unavailable Unavailable Ryann, F Jerry WOLFE Unavailable Unavailable Ryann, F Jerry WOLFE Unavailable Unavailable Ryann, F Jerry MD Unavailable Unavailable Ryann, F Jerry MD Unavailable Unavailable Ryann, F Jrery MD Unavailable Unavailable Ryann, F Jerry MD [...] Jerry MD Unavailable Unavailable Ryann, F Jerry WOLFE Unavailable Unavailable Ryann, F Jerry WOLFE Unavailable Unavailable Ryann, F Jerry MD Unavailable [...] is protected by Article 27-F of the [facility] Public Health law. If you continue you may have access to information: Regarding HIV / AIDS; Provided by facilities licensed or operated by the [facility] Office of Mental Health; or Provided by the [facility] Office for People With Developmental Disabilities. If such information is present, then the following [facility] mandated warning applies: This information has been [...] law may result in a fine or fpc sentence or both. A general authorization for the release of medical or other information is NOT sufficient authorization for further disc losure. Allergies and Adverse Reactions Type Description Substance Reaction Status Data Source(s ) Allergy to substance Allergy to substance Allergy to substance [facility] ([facility]) Allergy to substance Allergy to substance Allergy to substance [facility] ([facility]) Family History Family Member Name Family Member Gender Family Member Status Date o f Status Description Data Source(s) Unknown Condition [facility] Unknown Condition [facility] Unknown [facility] Unknown Condition [facility] Unknown Condition [facility] Unknown [facility] Encounters Encounter Providers Location Date Indications Data Source(s ) Outpatient Attender: EFFIE SALOMON MDConsultant: EFFIE Chavez MD 03/24/2021 01:44:00 PM EDT - 03/24/2021 01:44:00 PM EDT [facility] Emergency Attender: Rolando Paetl MD 02/25/2021 10:42:00 AM EDT - 02/25/2021 05:43:00 PM EDT TOE PAIN [facility] TOE PAIN Patient discharged. Outpatient Attender: EFFIE SALOMON MD Family [facility] 01/20/2021 0 1:00:00 PM EDT [facility] ([facility]) Outpatient Attender: EFFIE SALOMON MDConsultant: EFFIE Chavez MD 01/20/2021 12:51:00 PM EDT - 01/20/2021 12:51:00 PM EDT [facility] Outpatient Attender: EFFIE SALOMON MDConsultant: EFFIE Chavez MD 01/06/2021 09:20:00 AM EDT - [facility]FFIE SALOMON MDConsultant: EFFIE Chavez MD 01/02/2021 10:33:00 AM EDT - 01/02/2021 10:33:00 AM EDT [facility] Bryce Wolfe MD: [address] [place] [address] [phone], Ph. Attender: Bryce Wolfe MD [facility] Medical 12/16/2020 12:00:00 AM EDT [facility] ([facility]) Bryce Wolfe MD: [address] [place] [address] [phone], Ph. Attender: Bryce Wolfe MD [facility] Medical 11/19/2020 12:00:00 AM EDT [facility] ([facility]) Bryce Wolfe MD: [address] [place] [address] [phone], Ph. Attender: Bryce Wolfe MD [facility] Medical 11/19/2020 12:00:00 AM EDT [facility] ([facility]) Outpatient Attender: EFFIE SALOMON MDConsultant: EFFIE Chavez MD 10/10/2020 01:41:00 PM [facility] - 10/10/2020 01:41:00 PM [facility] Outpatient Attender: Jerry Corrales rivera: EFFIE SALOMON MDConsultant: EFFIE SALOMON MD 10/09/2020 03:15:00 PM [facility] - 10/09/2020 03:15:00 PM [facility] Outpatient Attender: EFFIE SALOMON MDConsultant: EFFIE Chavez MD 09/26/2020 08:36:00 AM [facility] - 09/26/2020 08:36:00 AM [facility] Outpatient Attender: EFFIE SALOMON MD Family Practice 09/26/2020 0 8:00:00 AM EST [facility] ([facility]) Outpatient Attender: EFFIE SALOMON MDConsultant: EFFIE Chavez MD 05/10/2020 09:16:00 AM EDT - 05/10/2020 09:16:00 AM EDT [facility] Outpatient Attender: EFFIE SALOMON MDConsultant: EFFIE Chavez MD 04/24/2020 12:52:00 PM EDT - 04/24/2020 12:52:00 PM EDT [facility] Immunizations Vaccine Date Status Description Data Source(s) COVID-19, mRNA, LNP-S, PF, 100 mcg/0.5 mL dose 12/16/2020 01 :41:36 PM EDT completed 10.5 mL [facility] ([facility]) COVID-19 VACCINE Moderna 12/16/2020 12:00:00 AM EDT completed NYSIIS Vaccine Series Complete: YESThis Data wa s Submitted to [facility] Via [facility]. COVID-19, mRNA, LNP-S, PF, 100 mcg/0.5 mL dose 11/19/2020 03 :05:11 PM EDT completed 10.5 mL [facility] ([facility]) COVID-19, mRNA, LNP-S, PF, 100 mcg/0.5 mL dose 11/19/2020 03 :05:11 PM EDT completed .5 mL [facility] ([facility]) COVID-19 VACCINE Moderna 11/19/2020 12:00:00 AM EDT completed [facility] Vaccine Series Complete: NOThis Data was Submitted to [facility] Via [employer]. Medications Medication Brand Name Start Date Product Form Dose Route Admi nistrative Instructions Pharmacy Instructions Status Indications Reaction Description Data Source(s) Cholecalciferol 54407 UNT Oral Capsule Weekly-D 10/10/2020 12:00:00 AM EST ORAL active [facility] ([facility]) Insurance Providers Payer name Policy type / Coverage type Policy ID Covered constitution party ID Covered constitution party's relationship to meehan Policy Meehan Plan Information UHC UNITED MEDICARE COMPLETE G [id number] [place] [id number] [id number] ANNALEE MEDICARE [id number] SP 5 [id number] ANNALEE [id number] SP [id number] [place] [id number] 18 [id number] UNHC MEDIC[place] COM[place] [id number] 18 [id number] UNHC MEDICARE COMPLETE - O/P [id number] 18 [id number] UNHC MEDICARE COMPLETE - CLINIC [id number] 18 [id number] [facility] COMMERCIAL HM [id number] 18 [id number] UNHC MEDICARE COMPLETE - O/P [id number] 18 [id number] [place] [id number] 18 [id number] [place] XIX [place] -[place] [id number] 18 [id number] ANNALEE CARE [id number] 18 [id number] MEDICAID [id number] SP [id number] [place] [id number] 18 [id number] [place] [id number] 18 [id number] ANSI-Medicaid [id number] ANSI-Commercial [id number] [place] CARE [place] [id number] 18 [id number] ANSI-Commercial [id number] ANSI-Medicaid [id number] ANSI-Commercial [id number] ANSI-Medicaid [id number] ANSI-Commercial [id number] [facility]-Medicaid [id number] ANSI-Commercial [id number] [facility] [id number] [facility]-Medicaid [id number] Problems, Conditions, and Diagnoses Code Display Name Description Problem Type Effective Dates Data Source(s) 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, lumbosacral region Other intervertebral disc displacement, lumbosacral region Diagnosis 0 [facility] Spondylolysis, lumbar region Spondylolysis, lumbar reg ion Diagnosis 01/06/2021 09:20:00 AM EDT [facility] R739 Hyperglycemia, unspecified Hyperglycemia, unspecified Diagnosis 01/02/2021 10:33:00 AM EDT [facility] L81475 Pain in left leg Pain in left leg Diagnosis 01/02/2021 10 :33:00 AM [facility] M549 Dorsalgia, unspecified Dorsalgia, unspecified Diagnosi s 01/02/2021 10:33:00 AM T [facility] E7800 Pure hypercholesterolemia, unspecified P ure hypercholesterolemia, unspecified Diagnosis 01/02/2021 10:33:00 AM T [facility] E559 Vitamin D deficiency, unspecified Vitamin D defi ciency, unspecified Diagnosis 01/02/2021 10:33:00 AM [facility] I10 Essential (primary) hypertension Essential (primary) h ypertension Diagnosis 01/02/2021 10:33:00 AM [facility] D171 Benign lipomatous neoplasm of skin and s ubcutaneous tissue of trunk Benign lipomatous neoplasm of skin and subcutaneous tissue of trunk Diagnosis 10/09/2020 03:15:00 PM [facility] F959 Tic disorder, unspecified Tic disorder, unspecified Di agnosis 09/26/2020 08:36:00 AM [facility] 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 Borderline i ntellectual functioning Diagnosis 09/26/2020 08:36:00 AM [facility] Z0001 Encounter for general adult medical exam ination with abnormal findings Encounter for general adult medical examination with abnormal findings Diagnosis 09/26/2020 08:36:00 AM [facility] Z202 Contact with and (suspected) exposure to infections with a predominantly sexual mode of transmission Contact with and (suspected) exposure to infections with a predominantly sexual mode of transmission Diagnosis 05/10 09:16:00 AM [facility] [id number] Essential hypertension Essential hypertension Problem 10/09/2020 12:00:00 AM [facility] ([facility]) D17.1 Lipoma of skin Lipoma of skin Problem 10/09/2020 12:00: 00 AM [facility] ([facility]) Surgeries/Procedures Procedure Description Date Indications Data Source(s) Ultrasound scan of lower limb veins (procedure) 2020 11:35:00 AM [facility] Computed tomography of abdominal aorta with contrast (proced ure) 02/25/2021 [facility] 02/25/2021 11:06:00 AM [facility] Plain chest X-ray (procedure) 02/25/2021 11:06:00 AM [facility] SARS-CoV-2 Rapid RNA (RT-PCR) 02/25/2021 12:00:00 AM [facility] OFFICE OUTPATIENT VISIT 15 MINUTES 01/20/2021 12:00:00 AM [facility] ([facility]) OFFICE OUTPATIENT VISIT 15 MINUTES 01/02/2021 12:00:00 AM EDT [facility] ([facility]) PHYSICIAN TELEPHONE EVALUATION 5-10 MIN 10/10/2020 12: 00:00 AM EST [facility] ([facility]) OFFICE OUTPATIENT NEW 20 MINUTES 10/09/2020 12:00:00 A M EST [facility] ([facility]) Brief Emotional/Behav Assessment W/ Scoring Doc Per Standard Inst 09/26/2020 12:00:00 AM EST [facility] ([facility] PERIODIC PREVENTIVE MED EST PATIENT 40-64YRS 12:00:00 AM EST [facility] ([facility]) Results ID Date Data Source [id number] 02/25/2021 03:53:00 PM EDT [facility] [address] [place] [address] [phone] NAME SEX PT STATUS ACCOUNT NUMBER ADRIANA LENTZ [facility] ER [id number] ORDERING PHYSICIAN LOCATION MEDICAL RECORD NO. Rolando Patel MD ER [id number] ATTENDING PHYSICIAN DATE OF DATE OF EXAM/TIME Effie Salomon 1970 02[birth year]/211107 TYPE / EXAM CTA Aortoiliofem runoff REASON FOR EXAM left toes blue CLINICAL HISTORY: [facility] left toes blue COMPARISON: None FINDINGS: [...] rce(s) Supporting Document(s) ID Date Data Source [id number] 02/25/2021 02:52:00 PM EDT Name Value Range Interpretation Code Description Data Marcelina rce(s) Supporting Document(s) Creatine kinase [Enzymatic activity/volume] in Serum or Plasma 2 82 U/L 33-211 Above high normal Creatine kinase.MB [Enzymatic activity/volume] in Serum or P lasma 2.3 ng/mL 0.0-5.0 N Chemistry studies (set) 0.8 % ID Date Data Source [id number] 02/25/2021 02:52:00 PM EDT Name Value Range Interpretation Code Description Data Marcelina rce(s) Supporting Document(s) Troponin I.cardiac [Mass/volume] in Serum or Plasma Less Than 0.015 0.00-0.09 N Less than 0.09 NG/ML Negative0.10 - 0.77 NG/ML High Risk0.78 NG/ML or Greater PositiveThe WHO defined the cutoff (definition for diagnosis of RI)for this method as 0.78 ng/ml. ID Date Data Source [id number] 02/25/2021 12:38:00 PM EDT Special Instructions: Lab may order repe at test if initial test elevatedPhysician If elevated, reflex second test in 4-6 hrs Name Value Range Interpretation Code Description Data Marcelina rce(s) Supporting Document(s) Leukocytes [#/volume] in Blood by Automated count 7.9 10*3/uL 4.45-10 .71 N Erythrocytes [#/volume] in Blood by Automated count 5.29 10*6/uL 4.3- 6.1 [facility] Hemoglobin [Moles/volume] in Blood 15.7 g/dL 13-18 N Hematocrit [Volume Fraction] of Blood by Automated count 46.3 % 4 2-52 N Erythrocyte mean corpuscular volume [Ent itic volume] in Cord blood by Automated count 88 fL 80-96 N [facility] ital Erythrocyte mean corpuscular hemoglobin [Entitic mass] by Au tomated count 30 pg 27-31 [facility] Erythrocyte mean corpuscular hemoglobin concentration [Mass/volume] in Cord blood 34 g/dL 33-37 N [facility] ital Erythrocyte distribution width [Entitic volume] by Automated count 13 % 11-15 [facility] Platelets [#/volume] in Blood by Automated count 210 10*3/uL 130-472 N Platelet mean volume [Entitic volume] in Blood 11.1 fL 9.1-13.1 N Neutrophils/100 leukocytes in Blood by Automated count 65.2 % 41- 77 [facility] Neutrophils [#/volume] in Blood by Automated count 5.1 U 1.7-7.6 N Lymphocytes/100 leukocytes in Blood by Automated count 22.8 % 14- 46 [facility] Lymphocytes [#/volume] in Blood by Automated count 1.8 U 0.6-4.6 N Monocytes/100 leukocytes in Blood by Automated count 8.8 % 4-12 N Monocytes [#/volume] in Blood by Automated count 0.7 U 0.2-1.2 N Eosinophils/100 leukocytes in Blood by Automated count 2.2 % 0-7 N Eosinophils [#/volume] in Blood by Automated count 0.2 U 0.0-0.5 N Basophils/100 leukocytes in Blood by Automated count 0.5 % 0.4-1 .3 N Basophils [#/volume] in Blood by Automated count 0.0 U 0.0-0.2 N NUCLEATED RED BLOOD CELL 0 % NUCLEATED RED BLOOD CELL# 0 U [facility] Immature granulocytes [Presence] in Blood by Automated count 0-2 N Immature granulocytes [#/volume] in Blood by Automated count 0.0 U 0-0.1 N Manual Differential panel - Blood NO ID Date Data Source [id number] 02/25/2021 01:12:00 PM EDT Special Instructions: Lab may order repe at test if initial test elevatedPhysician If elevated, reflex second test in 4-6 hrs Name Value Range Interpretation Code Description Data Marcelina rce(s) Supporting Document(s) Prothrombin Time (Patient) 11.0 s 9.6-12.3 N [facility] INR 1.0 0.9-1.1 [facility] THE INR IS OPERATIONALLY DEFINED FOR TRIP SH PLASMA FROMPATIENTS STABILIZED ON ORAL ANTICOAGULANTS.ROUTINE ANTICOAGULANT THERAPY 2.0-3.0RECURRENT SYSTEMIC EMBOLISM/HEART VALVE REPLACEMENT 2.5-3.5 aPTT.lupus sensitive (LA screen) 27.1 s 22.7-31.6 N ID Date Data Source [id number] 02/25/2021 02:16:00 PM EDT Special Instructions: Lab may order repe at test if initial test elevatedPhysician If elevated, reflex second test in 4-6 hrs Name Value Range Interpretation Code Description Data Marcelina rce(s) Supporting Document(s) Lactic w Rfx (if elevated) 1.4 mmol/L 0.5-2.0 N [facility] ID Date Data Source [id number] 02/25/2021 02:52:00 PM EDT Special Instructions: Lab may order repe at test if initial test elevatedPhysician If elevated, reflex second test in 4-6 hrs Name Value Range Interpretation Code Description Data Marcelina rce(s) Supporting Document(s) Urea nitrogen [Mass/volume] in Serum or Plasma 16 mg/dL 9-23 N Sodium [Moles/volume] in Serum or Plasma 136 mmol/L 132-146 N Potassium [Moles/volume] in Serum or Plasma 4.0 mmol/L 3.5-5.5 [facility] Chloride [Moles/volume] in Serum or Plasma 102 mmol/L 99-109 [facility] Carbon dioxide, total [Moles/volume] in Serum or Plasma 28 mmol/L 20 -31 [facility] Anion gap in Serum or Plasma 10 mmol/L 8-16 N [facility] Glucose [Mass/volume] in Serum or Plasma 89 mg/dL 74-106 [facility] Creatinine 0.9 mg/dL 0.5-1.1 [facility] Glomerular filtration rate/1.73 sq M.pre dicted [Volume Rate/Area] in Serum or Plasma Greater Than 60 ABOVE 60 Alanine aminotransferase [Enzymatic acti vity/volume] in Serum or Plasma by With P-5'-P 34 U/L 10-49 [facility] ital Aspartate aminotransferase [Enzymatic ac tivity/volume] in Serum or Plasma by With P-5'-P 24 U/L 0-33 [facility] pital Alkaline phosphatase [Enzymatic activity/volume] in Serum or Plasma 63 U/L 45-129 [facility] Calcium [Mass/volume] in Serum or Plasma 8.8 mg/dL 8.5-10.1 [facility] Bilirubin.total [Mass/volume] in Serum or Plasma 0.6 mg/dL 0.3-1.2 [facility] Albumin [Mass/volume] in Serum or Plasma by Bromocresol purple (BCP) dye binding method 4.0 g/dL 3.2-4.8 [facility] ital Protein [Mass/volume] in Serum or Plasma 7.9 g/dL 5.7-8.2 N ID Date Data Source [id number] 02/25/2021 12:38:00 PM EDT Special Instructions: Lab may order repe at test if initial test elevatedPhysician If elevated, reflex second test in 4-6 hrs Name Value Range Interpretation Code Description Data Marcelina rce(s) Supporting Document(s) Erythrocyte sedimentation rate by Westergren method 5 mm/hr 0-15 N @Reenter manual test result: 5@by Dot Ceja at 02/25/21 1237. ID Date Data Source [id number] 02/25/2021 02:52:00 PM EDT Special Instructions: Lab may order repe at test if initial test elevatedPhysician If elevated, reflex second test in 4-6 hrs Name Value Range Interpretation Code Description Data Marcelina rce(s) Supporting Document(s) C reactive protein [Mass/volume] in Serum or Plasma Less Than 2.9 0.0 -5.0 [facility] @Report as less than lower limit ID Date Data Source [id number] 02/25/2021 12:21:00 PM EDT [facility] ([facility]) Name Value Range Interpretation Code Description Data Marcelina rce(s) Supporting Document(s) Troponin I.cardiac [Mass/volume] in Serum or Plasma Laborato ry test result 0.00-0.09 Normal (applies to non-numeric results) [facility] TOE PAIN ID Date Data Source [id number] 02/25/2021 12:21:00 PM EDT [facility] Name Value Range Interpretation Code Description Data Marcelina rce(s) Supporting Document(s) Creatine kinase [Enzymatic activity/volume] in Serum or Plasma 2 82 U/L 33-211 Above high normal [facility] TOE PAIN Chemistry studies (set) 0.8 % [facility] TOE PAIN Creatine kinase.MB [Enzymatic activity/volume] in Serum or P lasma 2.3 ng/mL 0.0-5.0 Normal (applies to non-numeric results) [facility] TOE PAIN ID Date Data Source [id number] 02/25/2021 12:21:00 PM EDT [facility] Name Value Range Interpretation Code Description Data Marcelina rce(s) Supporting Document(s) C reactive protein [Mass/volume] in Serum or Plasma Laborato ry test result 0.0-5.0 Normal (applies to non-numeric results) [facility] TOE PAIN ID Date Data Source [id number] 02/25/2021 12:21:00 PM EDT [facility] Name Value Range Interpretation Code Description Data Marcelina rce(s) Supporting Document(s) Urea nitrogen [Mass/volume] in Serum or Plasma 16 mg/dL 9 -23 Normal (applies to non-numeric results) [facility] TOE PAIN Sodium [Moles/volume] in Serum or Plasma 136 mmol/L 132-146 Normal (applies to non-numeric results) [facility] TOE PAIN Potassium [Moles/volume] in Serum or Plasma 4.0 mmol/L 3.5- 5.5 Normal (applies to non-numeric results) [facility] TOE PAIN Carbon dioxide, total [Moles/volume] in Serum or Plasma 28 mmol/ L 20-31 Normal (applies to non-numeric results) [facility] TOE PAIN Anion gap in Serum or Plasma 10 mmol/L 8-16 [place] mal (applies to non-numeric results) [facility] TOE PAIN Chloride [Moles/volume] in Serum or Plasma 102 mmol/L 99-10 9 Normal (applies to non-numeric results) [facility] ([facility]) TOE PAIN Creatinine 0.9 mg/dL 0.5-1.1 Normal (applies to non-numeric resul ts) [facility] TOE PAIN Glucose [Mass/volume] in Serum or Plasma 89 mg/dL 74-106 Normal (applies to non- numeric results) [facility] TOE PAIN Alanine aminotransferase [Enzymatic acti vity/volume] in Serum or Plasma by With P-5'-P 34 U/L 10-49 Normal (applies to non-numeric results) [facility] ([facility]) TOE PAIN Glomerular filtration rate/1.73 sq M.pre dicted [Volume Rate/Area] in Serum or Plasma Laboratory test result [facility] ([facility]) TOE PAIN Alkaline phosphatase [Enzymatic activity/volume] in Serum or Plasma 63 U/L 45-129 Normal (applies to non-numeric results) [facility] ([facility]) TOE PAIN Aspartate aminotransferase [Enzymatic ac tivity/volume] in Serum or Plasma by With P-5'-P 24 U/L 0-33 Normal (applies to non-numeric results) [facility] ([facility]) TOE PAIN Calcium [Mass/volume] in Serum or Plasma 8.8 mg/dL 8.5-10. 1 Normal (applies to non-numeric results) [facility] TOE PAIN Bilirubin.total [Mass/volume] in Serum or Plasma 0.6 mg/dL 0.3-1.2 Normal (applies to non-numeric results) [facility] ([facility]) TOE PAIN Protein [Mass/volume] in Serum or Plasma 7.9 g/dL 5.7-8.2 Normal (applies to non-numeric results) [facility] TOE PAIN Albumin [Mass/volume] in Serum or Plasma by Bromocresol purple (BCP) dye binding method 4.0 g/dL 3.2-4.8 Normal (applies to non-numeric results) [facility] TOE PAIN ID Date Data Source [id number] 02/25/2021 12:21:00 PM EDT [facility] ([facility]) Name Value Range Interpretation Code Description Data Marcelina rce(s) Supporting Document(s) Lactate [Mass/volume] in Serum or Plasma 1.4 mmol/L 0.5-2.0 Normal (applies to non-numeric results) [facility] TOE PAIN ID Date Data Source [id number] 02/25/2021 12:21:00 PM EDT [facility] Name Value Range Interpretation Code Description Data Marcelina rce(s) Supporting Document(s) Inr 1.0 0.9-1.1 Normal (applies to non-numeric resul ts) [facility] ([facility]) TOE PAIN Laboratory test finding (navigational concept) 11.0 s 9 .6-12.3 Normal (applies to non-numeric results) [facility] ([facility]) TOE PAIN aPTT.lupus sensitive (LA screen) 27.1 s 22.7-31.6 Normal (applies to non-numeric results) [facility] ([facility]) TOE PAIN ID Date Data Source [id number] 02/25/2021 12:21:00 PM EDT [facility] ([facility]) Name Value Range Interpretation Code Description Data Marcelina rce(s) Supporting Document(s) Erythrocyte sedimentation rate by Westergren method 5 [facility] 0-15 Normal (applies to non-numeric results) [facility] ([facility]) TOE PAIN ID Date Data Source [id number] 02/25/2021 12:21:00 PM EDT [facility] ([facility]) Name Value Range Interpretation Code Description Data Marcelina rce(s) Supporting Document(s) Leukocytes [#/volume] in Blood by Automated count 7.9 10*3/uL 4.45-10.71 Normal (applies to non-numeric results) [facility] ([facility]) TOE PAIN Hemoglobin [Moles/volume] in Blood 15.7 g/dL 13-18 Normal (applies to non- numeric results) [facility] ([facility]) TOE PAIN Erythrocytes [#/volume] in Blood by Automated count 5.29 10*6/uL 4.3-6.1 Normal (applies to non-numeric results) [facility] ([facility]) TOE PAIN Hematocrit [Volume Fraction] of Blood by Automated count 46.3 % 42-52 Normal (applies to non-numeric results) [facility] ([facility]) TOE PAIN Erythrocyte mean corpuscular volume [Ent itic volume] in Cord blood by Automated count 88 fL 80-96 Normal (applies to non-numeric results) [facility]) TOE PAIN Erythrocyte mean corpuscular hemoglobin [Entitic mass] by Au tomated count 30 pg 27-31 Normal (applies to non-numeric results) [facility] ([facility]) TOE PAIN Erythrocyte mean corpuscular hemoglobin concentration [Mass/volume] in Cord blood 34 g/dL 33-37 Normal (applies to non-numeric results) [facility] ([facility]) TOE PAIN Platelets [#/volume] in Blood by Automated count 210 10*3/uL 130-472 Normal (applies to non-numeric results) [facility] ([facility]) TOE PAIN Erythrocyte distribution width [Entitic volume] by Automated cou nt 13 % 11-15 Normal (applies to non-numeric results) [facility] ([facility]) TOE PAIN Platelet mean volume [Entitic volume] in Blood 11.1 fL 9 .1-13.1 Normal (applies to non-numeric results) [facility] TOE PAIN Neutrophils/100 leukocytes in Blood by Automated count 65.2 % 41-77 Normal (applies to non-numeric results) [facility] ([facility]) TOE PAIN Neutrophils [#/volume] in Blood by Automated count 5.1 U 1.7-7.6 Normal (applies to non-numeric results) [facility] ([facility]) TOE PAIN Lymphocytes/100 leukocytes in Blood by Automated count 22.8 % 14-46 Normal (applies to non-numeric results) [facility] ([facility]) TOE PAIN Monocytes/100 leukocytes in Blood by Automated count 8.8 % 4-12 Normal (applies to non-numeric results) [facility] TOE PAIN Lymphocytes [#/volume] in Blood by Automated count 1.8 U 0.6-4.6 Normal (applies to non-numeric results) [facility] ([facility]) TOE PAIN Eosinophils/100 leukocytes in Blood by Automated count 2.2 % 0-7 Normal (applies to non-numeric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 mass index (BMI) [Ratio] 31.5 kg/m2 31.5 k g/m2 [facility] ([facility]) Body surface area Derived from formula 2.03 m2 2.03 m2 [facility] ([facility]) Body height 67 [in_i] 67 [in_i] [facility] 5'7" Body mass index (BMI) [Ratio] 3.0 kg/m2 3.0 kg /m2 [facility] ([facility]) Body surface area Derived from formula 0.74 m2 0.74 m2 [facility] Systolic blood pressure 140 mm[Hg] 140 mm[Hg] [facility] ([facility]) Diastolic blood pressure 94 mm[Hg] 94 mm[Hg] [facility] ([facility]) Heart rate 72 /min 72 /min [facility] ([facility]) Body temperature 98.6 [degF] 98.6 [degF] [facility] ([facility]) Respiratory rate 16 /min 16 /min [facility] ( [facility]) Oxygen saturation in Arterial blood by Pulse oximetry 99 % 99 % [facility] ([facility]) Body weight 19.00 [lb_av] 19.00 [lb_av] [facility] ([facility]) Body weight 8.618 kg 8.618 kg [facility] ([facility]) Body temperature 97.6 [degF] 97.6 [degF] [facility] ([facility]) Systolic blood pressure 132 mm[Hg] 132 mm[Hg] [facility] ([facility]) Diastolic blood pressure 80 mm[Hg] 80 mm[Hg] [facility] ([facility]) Heart rate 88 /min 88 /min [facility] ([facility]) Respiratory rate 18 /min 18 /min [facility] ( [facility]) Oxygen saturation in Arterial blood by Pulse oximetry 92 % 92 % [facility] Body weight 195.00 [lb_av] 195.00 [lb_av] [facility] ([facility]) Body weight 88.452 kg 88.452 kg [facility] ([facility]) Body height 67 [in_i] 67 [in_i] [facility] ([facility]) 5'7" Body mass index (BMI) [Ratio] 30.5 kg/m2 30.5 k g/m2 [facility] Body surface area Derived from formula 2.00 m2 2.00 m2 [facility] ([facility])
[2021-07-03] MEDS ORDERED: NS 1,000 ML IV ONE (14:40)
[2021-07-03 15:42] LABS: BASO # 0.1 10^3/uL (0.0-0.2); BASO % 0.5 % (0.0-1.0); EOS # 0.1 10^3/uL (0.0-0.5); EOS % 1.4 % (0.0-3.0); HEMATOCRIT 45.6 % (42.0-52.0); HEMOGLOBIN 15.1 g/dl (13.5-17.5); LYMPH # 1.7 10^3/uL (1.5-5.0); LYMPH % 17.1 % (24.0-44.0); MEAN CORPUSCULAR HEMOGLOBIN 29.4 pg (27.0-33.0); MEAN CORPUSCULAR HGB CONC 33.1 g/dl (32.0-36.5); MEAN CORPUSCULAR VOLUME 88.7 fl (80.0-96.0); MONO # 0.9 10^3/uL (0.0-0.8); MONO % 9.2 % (2.0-8.0); NEUTROPHILS # 7.1 10^3/uL (1.5-8.5); PLATELET COUNT, AUTOMATED 232 10^3/uL (150-450); RED BLOOD COUNT 5.14 10^6/uL (4.30-6.10)
[2021-07-03 16:10] LABS: ALBUMIN 3.9 GM/DL (3.2-5.2); ALT/SGPT 35 U/L (12-78); BILIRUBIN,DIRECT < 0.1 MG/DL (0.0-0.2); BILIRUBIN,TOTAL 0.4 MG/DL (0.2-1.0); LIPASE 118 U/L (73-393); TOTAL PROTEIN 7.4 GM/DL (6.4-8.2)
[2021-07-03] MEDS ORDERED: ISOVUE-370 76% 100ML VIAL As Ordered ONE (16:12)
--- NOTE | 2021-07-03 16:45 | REP ---
INDICATION: left flank pain. COMPARISON: None. TECHNIQUE: Standard helical technique after the intravenous administration of 100 cc Isovue 370 FINDINGS: There is a patchy opacity in the right lower lobe. Minimal left basilar opacities are identified. There are no pleural or pericardial effusions. The liver, gallbladder, spleen, pancreas, adrenal glands, and kidneys are within normal limits. There are 2 tiny low-density structures arising from the right kidney both are too small for CT characterization. They are likely tiny cortical cysts. The abdominal aorta and para-aortic regions are within normal limits. The bowel loops and the mesenteries are within normal limits. There is no free fluid or free air. There is no evidence of a mass or adenopathy. Bone window technique throughout the examination shows a grade 2 L5 upon S1 spondylolisthesis secondary to bilateral L5 spondylolysis. IMPRESSION: 1. Right lower lobe patchy opacities possibly reflecting early pneumonia. Follow-up is suggested. 2. There is no evidence of acute intraabdominal or intrapelvic disease with findings as described above. 3. Chronic osseous changes as described above. <Electronically signed by Jake Eubanks > 07/03/21 [id number]
[2021-07-03] MEDS ORDERED: CEFDINIR 300 MG CAP (OMNICEF) PO ONE (17:20)
[2021-07-03] MEDS ORDERED: CEFD300CAP PO (17:25)
--- NOTE | 2021-07-03 17:48 | REP ---
INDICATION: rll infiltrate on ct abd/pelv. COMPARISON: None. TECHNIQUE: Portable FINDINGS: The technique utilized in obtaining the radiograph has magnified the cardiac silhouette and accentuated the interstitial markings. The superior mediastinal structures are midline. The cardiac silhouette is unremarkable in size, shape, and position. The diaphragmatic surfaces of the lungs are regular, and the costophrenic angles are clear. The pulmonary christopher are clear. The imaged osseous structures are intact. IMPRESSION: There is no acute cardiopulmonary disease. <Electronically signed by Jake Eubanks > 07/03/21 [id number]
[2021-07-03 18:00] VITALS: BP 132/78
--- NOTE | 2021-07-03 20:25 | ECGEPIP ---
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 Order Number: [id number] Reading MD: Berkley Antony Measurements Intervals [place] Rate: 78 P: 50 [place]: 142 QRS: 62 QRSD: 96 T: 39 QT: 360 QTc: 410 Interpretive Statements Normal sinus rhythm No prior Electronically Signed on 07-03-2021 20:25:20 EDT by Berkley Antony
--- NOTE | 2021-07-04 06:44 | ED PDOC ---
Post-Departure Follow-Up ct abd/p faxed to dr lowery for fu Caden Mullen MD Jul 04, 2021 06:44
== END 2021-07-03 18:21 | disposition home or self-care (01) ==
LOC: M ED 11:33
DX: S39.011A Strain of muscle, fascia and tendon of abdomen, initial encounter (principal); X58.XXXA Exposure to other specified factors, initial encounter; Y92.89 Other specified places as the place of occurrence of the external cause; R91.8 Other nonspecific abnormal finding of lung field; I10 Essential (primary) hypertension; G89.29 Other chronic pain; M54.9 Dorsalgia, unspecified; Z79.899 Other long term (current) drug therapy
CPT/HCPCS: 36415; 71045; 74177; 80047; 80076; 81001; 83690; 84484; 85025; 93005; 99284; Q9967

== ENCOUNTER 2023-04-19 09:11 | Emergency (ER) | payer MEDICARE ==
[~2023-04-19] VITALS: Ht 170.2 cm; Wt 98.4 kg
[~2023-04-19 09:11] MED LIST changes: -BUPIVACAINE HCL 0.25% 10 ML VIAL As Ordered; -BUPIVACAINE HCL 0.25% 30 ML VIAL As Ordered; +CEFD300CAP PO; +LISI20TA35; +MELO15TA28; -TRIAMCINOLONE ACETONIDE SUSP 40 MG/ML VIAL (J3301) As Ordered
[2023-04-19 09:12] VITALS: TEMP 97.6; O2SAT 99
[2023-04-19] MEDS ORDERED: LIDOCAINE 5% (LIDODERM) PATCH TD ONE (11:25)
[2023-04-19] MEDS ORDERED: KETOROLAC 60MG 2ML VIAL IM ONE (11:25)
[2023-04-19] MEDS ORDERED: LIDO5DIS41 TD (12:09)
[2023-04-19] MEDS ORDERED: PRED20TA PO (12:09)
[2023-04-19] MEDS ORDERED: CYCL-707 PO (12:09)
[2023-04-19 12:18] VITALS: BP 110/73
== END 2023-04-19 12:19 | disposition home or self-care (01) ==
LOC: M ED 09:11
DX: S33.5XXA Sprain of ligaments of lumbar spine, initial encounter (principal); I10 Essential (primary) hypertension; F10.10 Alcohol abuse, uncomplicated; Z79.811 Long term (current) use of aromatase inhibitors; Z79.52 Long term (current) use of systemic steroids; Z79.899 Other long term (current) drug therapy
CPT/HCPCS: 96372; 99283; J1885

== ENCOUNTER → 2023-06-11 | Outpatient (CLI) | payer MEDICARE ==
[~2023-06-11] MED LIST changes: +CYCL-707 PO; +LIDO5DIS41 TD; +PRED20TA PO
== END ==
LOC: M RAD 15:45
PROVIDERS: ATTEND Physician Assistant
DX: S92.415A Nondisplaced fracture of proximal phalanx of left great toe, initial encounter for closed fracture (principal); X58.XXXA Exposure to other specified factors, initial encounter; Y92.9 Unspecified place or not applicable; Y93.9 Activity, unspecified; Y99.9 Unspecified external cause status

== ENCOUNTER → 2024-02-11 | Outpatient (CLI) | payer MEDICARE | LOC: M SLEEP HO 10:16 | PROVIDERS: ATTEND Family Medicine | DX: G47.9 Sleep disorder, unspecified (principal) ==